=== PATIENT | female | born 1935 | race Caucasian/White ===

== ENCOUNTER 2016-12-06 05:00 | Inpatient (IN) | payer MEDICARE, BC ==
[~2016-12-06 05:00] MED LIST: ARTHRITIS PAIN650 M5 PO; CALCIUM CITRAT1 EAC6 PO; LASIX20 M1 PO; MAGNESIUM250 M2 PO; METOPROLOL TART25 M1 PO; NORCO 5-325 TA1 EACH PO; ONE-A-DAY WOME1 EAC1 PO; POTASSIUM CHLO10 ME2 PO; PRILOSEC OTC20 M1 PO; REFRESH PLUS1 EACH EACH EYE; TYLENOL EXTRA500 M1 PO; VITAMIN D35000 UNI2 PO; VOLTAREN100 G1 TP
[2016-12-06 05:43] LABS: PROTHROMBIN TIME 11.3 SECONDS (9.0-13.6)
[2016-12-07 06:59] LABS: BASO % 0.2 % (0-2); EOS % 0.2 % (0-7); HGB-HEMOGLOBIN 10.4 gm/dl (12.0-15.5); IMMATURE GRANULOCYTES ABSOLUTE 0.02 tho/cmm (0-0.03); IMMATURE GRANULOCYTES PERCENT 0.2 % (0-0.3); LYMPH % 14.8 % (20-45); LYMPH ABSOLUTE COUNT 1.7 tho/cmm (0.8-4.5); MCH (MEAN CORPUSCULAR HGB) 29.2 pg (28.0-32.0); MCHC MEAN CORPUSCULAR HGB CONC 31.5 % (32.0-36.0); MCV (MEAN CELL VOLUME) 92.7 fl (82.0-96.0); MEAN PLATELET VOLUME 11.8 cmc (9.4-12.4); MONO % 12.4 % (0-12); MONOCYTE ABSOLUTE COUNT 1.5 tho/cmm (0.0-1.2); NEUTROPHIL ABSOLUTE COUNT 8.5 tho/cmm (1.6-8.0); NEUTROPHIL-AUTOMATED 8.5 tho/cmm (1.6-8.0); NEUTROPHILS % 72.2 % (40-80); PLATELET COUNT 190 tho/cmm (150-450); RED BLOOD COUNT 3.56 mil/cmm (4.00-5.20); RED CELL DISTRIBUTION WIDTH 13.6 % (12.4-16.4); WHITE BLOOD COUNT 11.7 tho/cmm (4.0-10.0)
[2016-12-10] MEDS ORDERED: ASPIRIN81 M1 PO (11:05)
[2016-12-10] MEDS ORDERED: NORCO 5-325 TA1 EACH PO (11:06)
[2016-12-10] MEDS ORDERED: SENOKOT-S TABL1 EACH PO (11:11)
== END 2016-12-10 11:45 | DRG 470 ==
LOC: SHSC 05:00 → ORE 07:38 → PACU 08:36 → 5EA 10:15
PROVIDERS: Physician Assistant; ADMIT Orthopaedic Surgery Foot and Ankle Surgery
PROC: 0SRC0J9 Replacement of Right Knee Joint with Synthetic Substitute, Cemented, Open Approach (ICD-10-PCS; principal; 2016-12-06)
DX: M17.11 Unilateral primary osteoarthritis, right knee (principal); G62.9 Polyneuropathy, unspecified; E87.5 Hyperkalemia; I47.1 Supraventricular tachycardia; D62 Acute posthemorrhagic anemia; K21.9 Gastro-esophageal reflux disease without esophagitis; Z87.11 Personal history of peptic ulcer disease; M85.80 Other specified disorders of bone density and structure, unspecified site; Z88.8 Allergy status to other drugs, medicaments and biological substances; E66.9 Obesity, unspecified; Z68.35 Body mass index [BMI] 35.0-35.9, adult; K59.00 Constipation, unspecified; R09.02 Hypoxemia
CPT/HCPCS: C1713; J0171; J0690; J1170; J2175; J2270; J2405; J2795; J3010